=== PATIENT | female | born 1960 | race Native Hawaiian/Other Pacific Islander ===

== ENCOUNTER 2023-01-09 13:12 | Outpatient (CLI) | payer OTHER ==
[2023-01-09 13:55] LABS: PLATELET COUNT 277 K/uL (152-353)
[2023-01-09 13:57] LABS: POTASSIUM 4.1 mmol/L (3.6-5.2); SODIUM 142 mmol/L (136-145)
== END 2023-01-09 19:21 | disposition home or self-care (01) ==
LOC: RAD 13:12
PROVIDERS: ATTEND Nurse Practitioner Family
DX: R07.89 Other chest pain (principal)
CPT/HCPCS: 36415; 80053; 82550; 82553; 84484; 85027; 93005

== ENCOUNTER 2023-02-17 13:02 | Outpatient (CLI) | payer OTHER | END 2023-02-17 19:16 | disposition home or self-care (01) | LOC: RESP 13:02 | PROVIDERS: ATTEND Nurse Practitioner Family | DX: R07.89 Other chest pain (principal) ==

== ENCOUNTER 2023-02-21 08:36 | Outpatient (CLI) | payer OTHER ==
[~2023-02-21] VITALS: Ht 156.2 cm; Wt 69.4 kg
== END 2023-02-21 19:14 | disposition home or self-care (01) ==
LOC: NM 08:36
PROVIDERS: ATTEND Nurse Practitioner Family
DX: R07.89 Other chest pain (principal)
CPT/HCPCS: A9500; J2785